=== PATIENT | female | born 1955 | race Caucasian/White ===

== ENCOUNTER 2017-03-24 18:29 | Inpatient (IN) | payer BC ==
[2017-03-24 19:06] LABS: Hematocrit 42.2 % (36.0-47.0); Mean Platelet Volume 7.9 fL (7.4-10.4); Red Blood Cell (RBC) Count 4.26 mill/uL (4.20-5.40); White Blood Cell (WBC) Count 19.3 thou/uL (4.8-10.8)
[2017-03-24 19:28] LABS: ALT (SGPT) 23 U/L (8-55); AST (SGOT) 27 U/L (5-34); Alkaline Phosphatase 76 U/L (40-150); Anion Gap 15 mmol/L (10-20); BUN (Urea Nitrogen) 22 mg/dL (9.8-20.1); Bilirubin, Total 0.4 mg/dL (0.2-1.2); CK (CPK) 81 U/L (29-168); Calc. Creatinine Clearance 0 mL/min (70-130); Calcium 9.1 mg/dL (7.8-10.44); Carbon Dioxide 20 mmol/L (23-31); Chloride 100 mmol/L (98-107); Estimated GFR-MDRD 52; Globulin 3.7 g/dL (2.4-3.5); Lipase 8 U/L (8-78); Protein, Total 7.6 g/dL (6.0-8.3)
[2017-03-24 19:31] LABS: Troponin I Less than 0.010 ng/mL (< 0.028)
[2017-03-24 19:35] LABS: Band 16 % (5-11); Neutrophil 65 % (42-75); Reactive Lymphocytes 2 % (0-10)
[2017-03-24] MEDS ORDERED: Acetaminophen 325 MG TAB ONE ×2 (19:40)
[2017-03-24 20:05] LABS: Lactic Acid - Sepsis 1.2 mmol/L (0.5-2.2)
[2017-03-24 20:40] LABS: Bilirubin Negative (Negative); Blood, Urine Moderate (Negative); Glucose, Urine (Dipstick) Negative (Negative); Ketone, Urine 15 mg/dL (Negative); Nitrite Positive (Negative); Protein, Urine (Dipstick) 100 mg/dL (Neg-Trace)
[2017-03-24 20:41] LABS: Bacteria/HPF 4+ HPF (None Seen); Hyaline Casts/LPF 0-3 HYALINE CAST LPF (0-3 Hyaline); Squamous Epithelial 0-3 HPF (0-3)
[2017-03-24] MEDS ORDERED: Levothyroxine Sodium 125 MCG TAB PO SCH (21:00)
--- NOTE | 2017-03-24 21:44 | RAD ---
PORTABLE CHEST 03/24/17 HISTORY: Tachycardia. Lung davis are clear. Heart and mediastinum are unremarkable. Vascular markings are normal. IMPRESSION: Unremarkable portable chest. POS: [facility]
[2017-03-24] MEDS ORDERED: Vancomycin HCl 750 MG in Sodium Chloride 0.9% 250 ML 250 ML IVPB SCH (21:45)
[2017-03-24] MEDS ORDERED: cefTRIAXone\\ROCEPHIN 2 GM in Sodium Chloride 0.9% 100 ML IVPB SCH (21:45)
[2017-03-25] MEDS ORDERED: Acetaminophen 325 MG TAB PO PRN (01:10)
[2017-03-25] MEDS ORDERED: Ondansetron ODT 4 MG TAB SL PRN (01:10)
[2017-03-25] MEDS ORDERED: Ondansetron HCl/PF 4 MG/2 ML Vial IVP PRN ×2 (01:10→03:10)
[2017-03-25] MEDS ORDERED: Sodium Chloride 0.9% 1,000 ML IV SCH ×2 (01:30)
[2017-03-25 01:31] VITALS: BMI 19.8
[2017-03-25] MEDS ORDERED: Acetaminophen 500 MG TAB PO PRN (03:10)
[2017-03-25] MEDS ORDERED: Ondansetron ODT 4 MG TAB PO PRN (03:10)
[2017-03-25] MEDS ORDERED: Vancomycin HCl 500 MG in Sodium Chloride 0.9% 100 ML IVPB SCH (03:30)
[2017-03-25] MEDS: Sodium Chloride 0.9% 1,000 ML IV SCH ×3 (03:54→20:14)
--- NOTE | 2017-03-25 04:01 | HP ---
DATE OF ADMISSION: 03/25/2017 PRIMARY CARE PROVIDER: Leana Reardon M.D. CHIEF COMPLAINT: Back pain and body aches. HISTORY OF PRESENT ILLNESS: This is a 61-year-old female who presents to [facility] complaining of generalized body aches, back pain, subjective fever and chills. The p atient states the symptoms began in the last 24 to 48 hours without relief. The patient denied any r ecent trauma, injury or exposure history. The patient denied any specific change to her bowel habits or hematuria. The patient admits to some flank pain mainly in the right flank distribution with sienna e radiation into the lower abdomen. The patient denied taking any specific home remedy for relief an d presented to the emergency room for evaluation. In the emergency room, the patient underwent gener al evaluation with urinalysis concerning for infectious process and sepsis criteria met with elevated pulse of 120, white blood cell count of 19,000 and hypotension. The patient received aggressive flu id resuscitation including intravenous normal saline as well as IV gentamicin, vancomycin, and Roceph in. The patient was also given levothyroxine 125 mcg x1 dose. The patient states she has been out o f her chronic Synthroid over the last 2 weeks. The patient states she was unable to fill the medicat ion, but was unclear on the reasoning. The patient was transferred to the medical floor for further evaluation. PAST MEDICAL HISTORY: 1. Chronic obstructive pulmonary disease. 2. Chronic tobacco abuse, ongoing. 3. Hypothyroidism, untreated. PAST SURGICAL HISTORY: 1. Status post cholecystectomy. 2. Status post thyroidectomy. 3. Status post hysterectomy. 4. Status post right middle finger surgery. CURRENT MEDICATIONS: 1. Estradiol 1 mg p.o. daily. 2. Levothyroxine 125 mcg p.o. daily half x2 weeks. ALLERGIES: CODEINE, PROCHLORPERAZINE, and TETANUS TOXOID. FAMILY HISTORY: No inheritable diseases per patient report. SOCIAL HISTORY: The patient resides in the [place], [place] area. The patient is employed with [employer]. Smokes up to one and a half packs of cigarettes daily. No alcohol or illicit drug us e. Functional of all activities of daily living. REVIEW OF SYSTEMS: The following complete review of systems was negative, unless otherwise mentioned in the HPI or below: Constitutional: Weight loss or gain, ability to conduct usual activities. Skin: Rash, itching. Eyes: Double vision, pain. ENT/Mouth: Nose bleeding, neck stiffness, pain, tenderness. Cardiovascular: Palpitations, dyspnea on exertion, orthopnea. Respiratory: Shortness of breath, wheezing, cough, hemoptysis, fever or night sweats. Gastrointestinal: Poor appetite, abdominal pain, heartburn, nausea, vomiting, constipation, or diarr hea. Genitourinary: Urgency, frequency, dysuria, nocturia. Musculoskeletal: Pain, swelling. Neurologic/Psychiatric: Anxiety, depression. Allergy/Immunologic: Skin rash, bleeding tendency. Otherwise, negative except as stated per HPI. PHYSICAL EXAMINATION: VITAL SIGNS: On admission, blood pressure 125/67, pulse 120, respiratory rate 18, temperature 99.9 d egrees Fahrenheit, O2 saturation is 95% on room air. GENERAL APPEARANCE: This is a 61-year-old female, alert, responsive, in mild distress. HEENT: Pupils are equal, round, and reactive to light and accommodation. Extraocular muscles are in tact. No scleral icterus, no conjunctival injection. Nares patent. OP is clear. NECK: Supple, no cervical adenopathy, no thyromegaly, no carotid bruits, no JVD appreciated. Cervic al spine with full active and passive range of motion. No meningeal signs appreciated. CHEST: Coarse breath sounds bilaterally with occasional expiratory wheeze bilaterally. CARDIOVASCULAR: S1, S2, without noted murmur. ABDOMEN: Flat, soft with mild tenderness in the right upper quadrant. Bowel sounds are positive in all four quadrants. No hepatosplenomegaly, no abdominal bruits, no rebound or guarding appreciated. Positive CVA tenderness of the right flank region. EXTREMITIES: Warm and dry with fair turgor. No clubbing, cyanosis or asymmetric edema appreciated. Pulses palpable distally at the dorsalis pedis, posterior tibial, and popliteal arteries bilaterally . Capillary refill less than 2 seconds. NEUROLOGIC: Cranial nerves II-XII are grossly intact. No focal or lateralizing signs appreciated. PERTINENT LABORATORY DATA AND X-RAY FINDINGS: Sodium 131, potassium 4.3, chloride 100, CO2 of 20, an ion gap 15, BUN 22, creatinine 1.07 with estimated GFR of 52, glucose 102, calcium 9.1, lactic acid l evel 1.2. LFTs within normal limits. Lipase 8, TSH 15.78, previously noted at 45.85 on 10/08/2016. CBC showed a white blood cell count 19.3, hemoglobin 14, hematocrit 42, platelet count 246 with 65% neutrophils, 16% bands. Urinalysis dated 03/24/2017 showed a specific gravity of 1.013, positive pro tein, positive ketones, moderate blood, positive nitrite, 11-20 wbc's and rbc's per high powered fiel d with 4+ bacteria. Influenza A and B antigen negative on 03/24/2017. Portable chest x-ray dated showed no acute cardiopulmonary process. EKG dated 03/24/2017 by my interpretation shows si nus tachycardia with heart rates in the 110s. Normal R-wave progression noted in the precordial lead s. Normal axis. No acute ST-T wave changes appreciated. ASSESSMENT AND PLAN: 1. Sepsis secondary to urinary tract infection. The patient will be admitted to the medical floor. We will continue intravenous normal saline at 125 mL per hour. Continue Rocephin 2 grams IV q.24 ho urs. Continue vancomycin 1 gram IV q.12 hours. Await final urine and blood culture results. [facility] general sepsis protocol. 2. Hypotension. We will continue intravenous fluids as outlined previously. Continue serial monito ring. 3. Hyponatremia. Continue intravenous normal saline as stated previously. Repeat sodium level in t he a.m. 4. Hypothyroidism. Untreated currently. Restart Synthroid 125 mcg p.o. daily. Check free T4 level in the a.m. 5. Metabolic acidosis. Secondarily to sepsis and urinary tract infection. Continue IV fluid hydrat ion and repeat CO2 level in the a.m. 6. Leukocytosis with bandemia, secondary to #1. Repeat CBC in the a.m. 7. Tobacco abuse. We will offer smoking cessation resources prior to discharge. 8. Prophylaxis. Sequential compression devices while in bed. Pepcid 20 mg p.o. b.i.d. 9. Code status is FULL. Surrogate medical decision maker is patient's spouse.
[2017-03-25 05:02] LABS: Lactic Acid - Sepsis 0.9 mmol/L (0.5-2.2)
[2017-03-25 05:08] LABS: Band 11 % (5-11); Hematocrit 32.7 % (36.0-47.0); Mean Platelet Volume 8.1 fL (7.4-10.4); Neutrophil 71 % (42-75); Red Blood Cell (RBC) Count 3.26 mill/uL (4.20-5.40); White Blood Cell (WBC) Count 19.1 thou/uL (4.8-10.8)
[2017-03-25 05:12] LABS: Anion Gap 13 mmol/L (10-20); BUN (Urea Nitrogen) 16 mg/dL (9.8-20.1); Calc. Creatinine Clearance 54 mL/min (70-130); Calcium 7.8 mg/dL (7.8-10.44); Carbon Dioxide 20 mmol/L (23-31); Chloride 111 mmol/L (98-107); Estimated GFR-MDRD 66
[2017-03-25] MEDS ORDERED: Levothyroxine Sodium 125 MCG TAB PO SCH (06:00)
[2017-03-25] MEDS ORDERED: Temazepam 15 MG CAP PO PRN (07:43)
[2017-03-25] MEDS ORDERED: Sodium Chloride 0.65% Nasal 44 ML BOT EA NARE PRN (07:43)
[2017-03-25] MEDS ORDERED: Diabetic Tussin 200 MG/10 ML UDCUP PO PRN (07:43)
[2017-03-25] MEDS ORDERED: Mag-Al 1200 mg/1200 mg/30 ML UDCUP PO PRN (07:43)
[2017-03-25] MEDS ORDERED: Milk Of Magnesia 30 ML UDCUP PO PRN (07:43)
[2017-03-25] MEDS ORDERED: Loratadine 10 MG TAB PO PRN (07:43)
[2017-03-25] MEDS ORDERED: Benzonatate 100 MG CAP PO PRN (07:43)
[2017-03-25] MEDS ORDERED: Senokot 8.6 MG TAB PO PRN (07:43)
[2017-03-25] MEDS ORDERED: Artificial Tears 18 DROP/0.9 ML EA EYE PRN (07:43)
[2017-03-25] MEDS ORDERED: Loperamide HCl 2 MG CAP PO PRN (07:43)
[2017-03-25] MEDS ORDERED: Chloraseptic Spray 180 ml Bottle PO PRN (07:43)
[2017-03-25] MEDS ORDERED: hydrALAZINE 20 MG/ML VIAL SLOW IVP PRN (07:43)
[2017-03-25] MEDS ORDERED: Eucerin (Mineral Oil/Petrolatum,White) 30 gm Jar TOP PRN (07:43)
[2017-03-25] MEDS: Famotidine 20 MG TAB PO SCH (08:40)
[2017-03-25] MEDS: Acetaminophen 500 MG TAB PO PRN ×3 (08:40→20:18)
[2017-03-25] MEDS: Estradiol 1 MG TAB PO SCH (08:40)
[2017-03-25] MEDS: Saccharomyces boulardii 250 MG CAP PO SCH (08:40)
[2017-03-25] MEDS ORDERED: Vancomycin HCl 1 GM in Sodium Chloride 0.9% 250 ML 250 ML IVPB SCH (09:00)
[2017-03-25] MEDS ORDERED: Vancomycin HCl 750 MG in Sodium Chloride 0.9% 250 ML 250 ML IVPB SCH (10:00)
--- NOTE | 2017-03-25 12:39 | PDOC.PN ---
- Subjective Encounter Start Date: 03/25/17 Encounter Start Time: 10:05 -: old records requested/rev Patient seen and examined. No new complaints. No overnight events - Objective Resuscitation Status: Resuscitation Status FULL:Full Resuscitation MAR Reviewed: Yes Vital Signs & Weight: Vital Signs (12 hours) Temp Pulse Resp BP Pulse Ox 03/25/17 08:00 99.1 F 89 16 105/67 96 03/25/17 04:10 98.1 F 74 18 94/54 L 96 I&O: 03/24/17 03/25/17 03/26/17 06:59 06:59 06:59 Intake Total 875 Balance 875 Result Diagrams: 03/25/17 03:58 03/25/17 03:59 Radiology Reviewed by me: Yes Phys Exam - Physical Examination Constitutional: NAD HEENT: PERRLA, moist MMs, sclera anicteric Neck: no JVD, supple Respiratory: no wheezing, no rales, no rhonchi Cardiovascular: RRR, no significant murmur, no rub Gastrointestinal: soft, non-tender, no distention, positive bowel sounds Musculoskeletal: no edema, pulses present Neurological: non-focal, normal sensation Psychiatric: normal affect, A&O x 3 Skin: no rash, normal turgor Dx/Plan (1) Sepsis Code(s): A41.9 - SEPSIS, UNSPECIFIED ORGANISM Status: Acute (2) UTI (urinary tract infection) Status: Acute (3) COPD (chronic obstructive pulmonary disease) Status: Chronic (4) Hypothyroidism Code(s): E03.9 - HYPOTHYROIDISM, UNSPECIFIED Status: Chronic (5) Macrocytic anemia Code(s): D53.9 - NUTRITIONAL ANEMIA, UNSPECIFIED Status: Chronic (6) Protein-calorie malnutrition, moderate Code(s): E44.0 - MODERATE PROTEIN-CALORIE MALNUTRITION Status: Chronic (7) Tobacco abuse Code(s): Z72.0 - TOBACCO USE Status: Chronic - Plan cont current plan of care, continue antibiotics * medication reviewed as below * symptomatic treatment * add levaquin * follow culture * home medication reconciled. Review of Systems - Review of Systems ENT: negative: Ear Pain, Ear Discharge, Nose Pain, Nose Discharge, Nose Congestion, Mouth Pain, Mouth Swelling, Throat Pain, Throat Swelling, Other Respiratory: negative: Cough, Dry, Shortness of Breath, Hemoptysis, SOB with Excertion, Pleuritic Pain, Sputum, Wheezing Cardiovascular: negative: Chest Pain, Palpitations, Orthopnea, Paroxysmal Noc. Dyspnea, Edema, Light Headedness, Other Gastrointestinal: negative: Nausea, Vomiting, Abdominal Pain, Diarrhea, Constipation, Melena, Hematochezia, Other Genitourinary: Dysuria. negative: Frequency, Incontinence, Hematuria, Retention , Other Musculoskeletal: negative: Neck Pain, Shoulder Pain, Arm Pain, Back Pain, Hand Pain, Leg Pain, Foot Pain, Other Skin: negative: Rash, Lesions, Fran, Bruising, Other - Medications/Allergies Allergies/Adverse Reactions: Allergies Allergy/AdvReac Type Severity Reaction Status Date / Time codeine Allergy Verified 03/25/17 01:22 prochlorperazine Allergy Verified 03/25/17 01:22 [From Compazine] Tetanus Vaccines and Toxoid Allergy Verified 03/25/17 01:22 Medications: Current Medications Acetaminophen (Tylenol) 500 mg PO Q6H PRN PRN Reason: Headache/Fever or Mild Pain Last Admin: 03/25/17 08:40 Dose: 500 mg Al Hydroxide/Mg Hydroxide (Maalox) 15 ml PO Q4H PRN PRN Reason: Heartburn or Indigestion Artificial Tears (Tears Naturale) 0 drop EA EYE PRN PRN PRN Reason: Dry Eyes Benzonatate (Tessalon) 100 mg PO Q4H PRN PRN Reason: Cough Estradiol (Estrace) 1 mg PO DAILY [facility] Last Admin: 03/25/17 08:40 Dose: 1 mg Famotidine (Pepcid) 20 mg PO DAILY [facility] Last Admin: 03/25/17 08:40 Dose: 20 mg Guaifenesin (Robitussin Sf) 200 mg PO Q4H PRN PRN Reason: Cough Hydralazine HCl (Apresoline) 10 mg SLOW IVP Q4H PRN PRN Reason: Systolic BP > 180 Ceftriaxone Sodium 2 gm/ (Sodium Chloride) 100 mls @ 200 mls/hr IVPB 2200 [facility] Sodium Chloride (Normal Saline 0.9%) 1,000 mls @ 125 mls/hr IV .Q8H [facility] Last Admin: 03/25/17 03:54 Dose: 1,000 mls Vancomycin HCl 750 mg/ Sodium (Chloride) 250 mls @ 250 mls/hr IVPB 2300 [facility] Levofloxacin 500 mg/ Device 100 mls @ 100 mls/hr IVPB 0800 [facility] Last Admin: 03/25/17 08:40 Dose: 100 mls Levothyroxine Sodium (Synthroid) 175 mcg PO 0600 [facility] Loperamide HCl (Imodium) 2 mg PO PRN PRN PRN Reason: Diarrhea/Loose Stools Loratadine (Claritin) 10 mg PO DAILYPRN PRN PRN Reason: Sinus Symptoms Magnesium Hydroxide (Milk Of Magnesium) 30 ml PO DAILYPRN PRN PRN Reason: Constipation Mineral Oil/White Petrolatum (Eucerin Cream) 0 gm TOP BIDPRN PRN PRN Reason: Dry Skin Ondansetron HCl (Zofran Odt) 4 mg PO Q6H PRN PRN Reason: Nausea/Vomiting Ondansetron HCl (Zofran) 4 mg IVP Q6H PRN PRN Reason: Nausea/Vomiting Phenol (Chloraseptic [place] 180 Ml Bot) 0 ml PO PRN PRN PRN Reason: Sore Throat Saccharomyces Boulardii (Florastor) 250 mg PO DAILY [facility] Last Admin: 03/25/17 08:40 Dose: 250 mg Senna (Senokot) 2 tab PO HSPRN PRN PRN Reason: Constipation Sodium Chloride ([employer] [place] Nasal [place] 0.65%) 0 ml EA NARE QIDPRN PRN PRN Reason: Nasal Congestion Sodium Chloride (Flush - Normal Saline) 10 ml IVF Q12HR [facility] Last Admin: 03/25/17 08:41 Dose: Not Given Sodium Chloride (Flush - Normal Saline) 10 ml IVF PRN PRN PRN Reason: Saline Flush Temazepam (Restoril) 15 mg PO HSPRN PRN PRN Reason: Insomnia
[2017-03-25] MEDS: Ibuprofen 800 MG TAB PO PRN (21:25)
[2017-03-25] MEDS: cefTRIAXone\\ROCEPHIN 2 GM in Sodium Chloride 0.9% 100 ML IVPB SCH (21:26)
[2017-03-25] MEDS: Vancomycin HCl 750 MG in Sodium Chloride 0.9% 250 ML 250 ML IVPB SCH (23:34)
[2017-03-26] MEDS: Levothyroxine Sodium 175 MCG TAB PO SCH (04:49)
[2017-03-26] MEDS: Acetaminophen 500 MG TAB PO PRN ×2 (04:54→16:44)
[2017-03-26] MEDS: Sodium Chloride 0.9% 1,000 ML IV SCH ×3 (04:54→19:19)
[2017-03-26 04:58] LABS: #Basophils 0.1 thou/uL (0.0-0.2); #Eosinphils 0.1 thou/uL (0.0-0.7); #Lymphocytes 1.1 thou/uL (1.20-3.40); #Monocytes 1.4 thou/uL (0.11-0.59); %Basophils 0.4 % (0.0-1.0); %Eosinophils 1.1 % (0.0-10.0); %Lymphocytes 8.9 % (21.0-51.0); %Monocytes 10.9 % (0.0-10.0); Hematocrit 31.5 % (36.0-47.0); Mean Platelet Volume 7.9 fL (7.4-10.4); Red Blood Cell (RBC) Count 3.14 mill/uL (4.20-5.40); White Blood Cell (WBC) Count 12.8 thou/uL (4.8-10.8)
[2017-03-26 05:25] LABS: ALT (SGPT) 31 U/L (8-55); AST (SGOT) 32 U/L (5-34); Alkaline Phosphatase 94 U/L (40-150); Anion Gap 11 mmol/L (10-20); BUN (Urea Nitrogen) 11 mg/dL (9.8-20.1); Bilirubin, Total 0.3 mg/dL (0.2-1.2); Calc. Creatinine Clearance 62 mL/min (70-130); Calcium 7.6 mg/dL (7.8-10.44); Carbon Dioxide 19 mmol/L (23-31); Chloride 112 mmol/L (98-107); Estimated GFR-MDRD 77; Globulin 2.6 g/dL (2.4-3.5); Protein, Total 5.4 g/dL (6.0-8.3)
[2017-03-26] MEDS: Ibuprofen 800 MG TAB PO PRN (05:36)
[2017-03-26] MEDS: Estradiol 1 MG TAB PO SCH (08:08)
[2017-03-26] MEDS: Famotidine 20 MG TAB PO SCH ×2 (08:08→19:19)
[2017-03-26] MEDS: Saccharomyces boulardii 250 MG CAP PO SCH (08:08)
--- NOTE | 2017-03-26 11:37 | PDOC.PN ---
- Subjective Encounter Start Date: 03/26/17 Encounter Start Time: 09:00 Patient seen and examined. No overnight events, c/o neck and back pain - Objective Resuscitation Status: Resuscitation Status FULL:Full Resuscitation MAR Reviewed: Yes Vital Signs & Weight: Vital Signs (12 hours) Temp Pulse Resp BP Pulse Ox 03/26/17 08:00 97.5 F L 74 16 107/65 95 03/26/17 03:32 97.7 F 77 18 117/72 95 03/25/17 23:38 98.0 F 76 18 93/53 L I&O: 03/25/17 03/26/17 03/27/17 06:59 06:59 06:59 Intake Total 875 3580 Balance 875 3580 Result Diagrams: 03/26/17 04:18 03/26/17 04:18 Phys Exam - Physical Examination Constitutional: NAD HEENT: PERRLA, moist MMs, sclera anicteric Neck: no JVD, supple Respiratory: no wheezing, no rales, no rhonchi Cardiovascular: RRR, no significant murmur, no rub Gastrointestinal: soft, non-tender, no distention, positive bowel sounds Musculoskeletal: no edema, pulses present Neurological: non-focal, normal sensation Lymphatic: no nodes Psychiatric: normal affect, A&O x 3 Skin: no rash, normal turgor Dx/Plan (1) Sepsis Code(s): A41.9 - SEPSIS, UNSPECIFIED ORGANISM Status: Acute (2) UTI (urinary tract infection) Status: Acute (3) COPD (chronic obstructive pulmonary disease) Status: Chronic (4) Hypothyroidism Code(s): E03.9 - HYPOTHYROIDISM, UNSPECIFIED Status: Chronic (5) Macrocytic anemia Code(s): D53.9 - NUTRITIONAL ANEMIA, UNSPECIFIED Status: Chronic (6) Protein-calorie malnutrition, moderate Code(s): E44.0 - MODERATE PROTEIN-CALORIE MALNUTRITION Status: Chronic (7) Tobacco abuse Code(s): Z72.0 - TOBACCO USE Status: Chronic - Plan cont current plan of care, continue antibiotics, respiratory therapy * continue iv antibiotics as ordered below. * add toradol for pain control * add folic acid, vitamin b12 * nutritional support * follow culture * medication reviewed as below * symptomatic treatment * continue ivf Review of Systems - Review of Systems Constitutional: negative: Fever, Chills, Sweats, Weakness, Malaise, Other Eyes: negative: Pain, Vision Change, Conjunctivae Inflammation, Eyelid Inflammation, Redness, Other ENT: negative: Ear Pain, Ear Discharge, Nose Pain, Nose Discharge, Nose Congestion, Mouth Pain, Mouth Swelling, Throat Pain, Throat Swelling, Other Respiratory: negative: Cough, Dry, Shortness of Breath, Hemoptysis, SOB with Excertion, Pleuritic Pain, Sputum, Wheezing Cardiovascular: negative: Chest Pain, Palpitations, Orthopnea, Paroxysmal Noc. Dyspnea, Edema, Light Headedness, Other Gastrointestinal: negative: Nausea, Vomiting, Abdominal Pain, Diarrhea, Constipation, Melena, Hematochezia, Other Genitourinary: negative: Dysuria, Frequency, Incontinence, Hematuria, Retention , Other Musculoskeletal: Neck Pain, Back Pain. negative: Shoulder Pain, Arm Pain, Hand Pain, Leg Pain, Foot Pain, Other - Medications/Allergies Allergies/Adverse Reactions: Allergies Allergy/AdvReac Type Severity Reaction Status Date / Time codeine Allergy Verified 03/25/17 01:22 prochlorperazine Allergy Verified 03/25/17 01:22 [From Compazine] Tetanus Vaccines and Toxoid Allergy Verified 03/25/17 01:22 Medications: Current Medications Acetaminophen (Tylenol) 500 mg PO Q6H PRN PRN Reason: Headache/Fever or Mild Pain Last Admin: 03/26/17 04:54 Dose: 500 mg Al Hydroxide/Mg Hydroxide (Maalox) 15 ml PO Q4H PRN PRN Reason: Heartburn or Indigestion Artificial Tears (Tears Naturale) 0 drop EA EYE PRN PRN PRN Reason: Dry Eyes Benzonatate (Tessalon) 100 mg PO Q4H PRN PRN Reason: Cough Cyanocobalamin (Vitamin B-12) 1,000 mcg PO DAILY [facility] Estradiol (Estrace) 1 mg PO DAILY [facility] Last Admin: 03/26/17 08:08 Dose: 1 mg Famotidine (Pepcid) 20 mg PO BID [facility] Folic Acid (Folvite) 1 mg PO DAILY [facility] Guaifenesin (Robitussin Sf) 200 mg PO Q4H PRN PRN Reason: Cough Hydralazine HCl (Apresoline) 10 mg SLOW IVP Q4H PRN PRN Reason: Systolic BP > 180 Ceftriaxone Sodium 2 gm/ (Sodium Chloride) 100 mls @ 200 mls/hr IVPB 2200 [facility] Last Admin: 03/25/17 21:26 Dose: 100 mls Sodium Chloride (Normal Saline 0.9%) 1,000 mls @ 125 mls/hr IV .Q8H [facility] Last Admin: 03/26/17 04:54 Dose: 1,000 mls Vancomycin HCl 750 mg/ Sodium (Chloride) 250 mls @ 250 mls/hr IVPB 2300 [facility] Last Admin: 03/25/17 23:34 Dose: 250 mls Levofloxacin 500 mg/ Device 100 mls @ 100 mls/hr IVPB 0800 [facility] Last Admin: 03/26/17 08:08 Dose: 100 mls Iron/Minerals/Multivitamins (Theragran M) 1 tab PO DAILY [facility] Levothyroxine Sodium (Synthroid) 175 mcg PO 0600 [facility] Last Admin: 03/26/17 04:49 Dose: 175 mcg Loperamide HCl (Imodium) 2 mg PO PRN PRN PRN Reason: Diarrhea/Loose Stools Loratadine (Claritin) 10 mg PO DAILYPRN PRN PRN Reason: Sinus Symptoms Magnesium Hydroxide (Milk Of Magnesium) 30 ml PO DAILYPRN PRN PRN Reason: Constipation Mineral Oil/White Petrolatum (Eucerin Cream) 0 gm TOP BIDPRN PRN PRN Reason: Dry Skin Ondansetron HCl (Zofran Odt) 4 mg PO Q6H PRN PRN Reason: Nausea/Vomiting Ondansetron HCl (Zofran) 4 mg IVP Q6H PRN PRN Reason: Nausea/Vomiting Phenol (Chloraseptic [place] 180 Ml Bot) 0 ml PO PRN PRN PRN Reason: Sore Throat Saccharomyces Boulardii (Florastor) 250 mg PO DAILY [facility] Last Admin: 03/26/17 08:08 Dose: 250 mg Senna (Senokot) 2 tab PO HSPRN PRN PRN Reason: Constipation Sodium Chloride ([place] Nasal [place] 0.65%) 0 ml EA NARE QIDPRN PRN PRN Reason: Nasal Congestion Sodium Chloride (Flush - Normal Saline) 10 ml IVF Q12HR [facility] Last Admin: 03/26/17 08:10 Dose: Not Given Sodium Chloride (Flush - Normal Saline) 10 ml IVF PRN PRN PRN Reason: Saline Flush Temazepam (Restoril) 15 mg PO HSPRN PRN PRN Reason: Insomnia
[2017-03-26] MEDS: Ketorolac Tromethamine 30 MG/ML VIAL IVP PRN ×2 (12:27→19:18)
[2017-03-26] MEDS: cefTRIAXone\\ROCEPHIN 2 GM in Sodium Chloride 0.9% 100 ML IVPB SCH (21:49)
[2017-03-26 22:20] LABS: Vancomycin, Trough 5.4 ug/mL
[2017-03-27] MEDS: Vancomycin HCl 750 MG in Sodium Chloride 0.9% 250 ML 250 ML IVPB SCH (00:04)
[2017-03-27] MEDS: Acetaminophen 500 MG TAB PO PRN (00:11)
[2017-03-27] MEDS: Sodium Chloride 0.9% 1,000 ML IV SCH ×2 (03:31→11:14)
[2017-03-27 05:30] LABS: #Eosinphils 0.2 thou/uL (0.0-0.7); #Lymphocytes 1.6 thou/uL (1.20-3.40); #Neutrophils 6.5 thou/uL (1.40-6.50); %Basophils 0.3 % (0.0-1.0); %Eosinophils 2.1 % (0.0-10.0); %Monocytes 10.3 % (0.0-10.0); Hematocrit 31.5 % (36.0-47.0); Mean Platelet Volume 7.9 fL (7.4-10.4); Red Blood Cell (RBC) Count 3.16 mill/uL (4.20-5.40); White Blood Cell (WBC) Count 9.3 thou/uL (4.8-10.8)
[2017-03-27] MEDS: Levothyroxine Sodium 175 MCG TAB PO SCH (05:42)
[2017-03-27 05:43] LABS: Anion Gap 8 mmol/L (10-20); BUN (Urea Nitrogen) 12 mg/dL (9.8-20.1); Calc. Creatinine Clearance 61 mL/min (70-130); Calcium 7.3 mg/dL (7.8-10.44); Carbon Dioxide 21 mmol/L (23-31); Chloride 112 mmol/L (98-107); Estimated GFR-MDRD 75
[2017-03-27] MEDS ORDERED: Potassium Chloride 20 MEQ TAB PO SCH (08:00)
[2017-03-27 08:23] LABS: Magnesium 2.1 mg/dL (1.6-2.6)
[2017-03-27 08:32] LABS: Phosphorus 1.5 mg/dL (2.3-4.7)
[2017-03-27] MEDS: Multivitamin W/ Minerals 1 TAB PO SCH (08:44)
[2017-03-27] MEDS: Folic Acid 1 MG TAB PO SCH (08:44)
[2017-03-27] MEDS: Famotidine 20 MG TAB PO SCH ×2 (08:44→20:19)
[2017-03-27] MEDS: Cyanocobalamin (Vitamin B-12) 1,000 MCG TAB PO SCH (08:44)
[2017-03-27] MEDS: Saccharomyces boulardii 250 MG CAP PO SCH (08:44)
[2017-03-27] MEDS: Estradiol 1 MG TAB PO SCH (08:45)
[2017-03-27] MEDS ORDERED: Magnesium Sulfate 4 GM in Sodium Chloride 0.9% 250 ML 250 ML IVPB SCH (09:00)
[2017-03-27] MEDS ORDERED: Vancomycin HCl 750 MG in Sodium Chloride 0.9% 250 ML 250 ML IVPB SCH (11:00)
--- NOTE | 2017-03-27 12:19 | PDOC.PN ---
- Subjective Encounter Start Date: 03/27/17 Encounter Start Time: 08:40 Patient seen and examined. No new complaints. No overnight events - Objective Resuscitation Status: Resuscitation Status FULL:Full Resuscitation MAR Reviewed: Yes Vital Signs & Weight: Vital Signs (12 hours) Temp Pulse Resp BP Pulse Ox 03/27/17 08:00 97.6 F 73 16 130/71 97 I&O: 03/26/17 03/27/17 03/28/17 06:59 06:59 06:59 Intake Total 3580 3480 Balance 3580 3480 Result Diagrams: 03/27/17 04:24 03/27/17 04:24 Phys Exam - Physical Examination Constitutional: NAD HEENT: PERRLA, moist MMs, sclera anicteric Neck: no JVD, supple Respiratory: no wheezing, no rales, no rhonchi Cardiovascular: RRR, no significant murmur, no rub Gastrointestinal: soft, non-tender, no distention, positive bowel sounds Musculoskeletal: no edema, pulses present Neurological: non-focal, normal sensation, moves all 4 limbs Psychiatric: normal affect, A&O x 3 Skin: no rash, normal turgor Dx/Plan (1) Sepsis Code(s): A41.9 - SEPSIS, UNSPECIFIED ORGANISM Status: Acute (2) UTI (urinary tract infection) Status: Acute (3) COPD (chronic obstructive pulmonary disease) Status: Chronic (4) Hypothyroidism Code(s): E03.9 - HYPOTHYROIDISM, UNSPECIFIED Status: Chronic (5) Macrocytic anemia Code(s): D53.9 - NUTRITIONAL ANEMIA, UNSPECIFIED Status: Chronic (6) Protein-calorie malnutrition, moderate Code(s): E44.0 - MODERATE PROTEIN-CALORIE MALNUTRITION Status: Chronic (7) Tobacco abuse Code(s): Z72.0 - TOBACCO USE Status: Chronic (8) Hypokalemia Code(s): E87.6 - HYPOKALEMIA Status: Acute (9) Hypomagnesemia Code(s): E83.42 - HYPOMAGNESEMIA Status: Acute - Plan cont current plan of care, continue antibiotics * continue iv antibiotics * medication reviewed as below * symptomatic treatment * replace potassium * replace magnesium. Review of Systems - Review of Systems ENT: negative: Ear Pain, Ear Discharge, Nose Pain, Nose Discharge, Nose Congestion, Mouth Pain, Mouth Swelling, Throat Pain, Throat Swelling, Other Respiratory: negative: Cough, Dry, Shortness of Breath, Hemoptysis, SOB with Excertion, Pleuritic Pain, Sputum, Wheezing Cardiovascular: negative: Chest Pain, Palpitations, Orthopnea, Paroxysmal Noc. Dyspnea, Edema, Light Headedness, Other Gastrointestinal: negative: Nausea, Vomiting, Abdominal Pain, Diarrhea, Constipation, Melena, Hematochezia, Other Genitourinary: negative: Dysuria, Frequency, Incontinence, Hematuria, Retention , Other Musculoskeletal: negative: Neck Pain, Shoulder Pain, Arm Pain, Back Pain, Hand Pain, Leg Pain, Foot Pain, Other Skin: negative: Rash, Lesions, Fran, Bruising, Other - Medications/Allergies Allergies/Adverse Reactions: Allergies Allergy/AdvReac Type Severity Reaction Status Date / Time codeine Allergy Verified 03/25/17 01:22 prochlorperazine Allergy Verified 03/25/17 01:22 [From Compazine] Tetanus Vaccines and Toxoid Allergy Verified 03/25/17 01:22 Medications: Current Medications Acetaminophen (Tylenol) 500 mg PO Q6H PRN PRN Reason: Headache/Fever or Mild Pain Last Admin: 03/27/17 00:11 Dose: 500 mg Al Hydroxide/Mg Hydroxide (Maalox) 15 ml PO Q4H PRN PRN Reason: Heartburn or Indigestion Artificial Tears (Tears Naturale) 0 drop EA EYE PRN PRN PRN Reason: Dry Eyes Benzonatate (Tessalon) 100 mg PO Q4H PRN PRN Reason: Cough Cyanocobalamin (Vitamin B-12) 1,000 mcg PO DAILY [facility]S [facility] Last Admin: 03/27/17 08:44 Dose: 1,000 mcg Estradiol (Estrace) 1 mg PO DAILY [facility] 234 [facility]S [facility] Last Admin: 03/27/17 08:45 Dose: 1 mg Famotidine (Pepcid) 20 mg PO BID [facility] 234 B[facility]S AT [facility] Last Admin: 03/27/17 08:44 Dose: 20 mg Folic Acid (Folvite) 1 mg PO DAILY [facility] 234 [facility]S AT [facility] Last Admin: 03/27/17 08:44 Dose: 1 mg Guaifenesin (Robitussin Sf) 200 mg PO Q4H PRN PRN Reason: Cough Hydralazine HCl (Apresoline) 10 mg SLOW IVP Q4H PRN PRN Reason: Systolic BP > 180 Ceftriaxone Sodium 2 gm/ (Sodium Chloride) 100 mls @ 200 mls/hr IVPB 2200 [facility] 234 [facility]S [facility] Last Admin: 03/26/17 21:49 Dose: 100 mls Sodium Chloride (Normal Saline 0.9%) 1,000 mls @ 125 mls/hr IV .Q8H [facility] 234 B[facility]S [facility] Last Admin: 03/27/17 11:14 Dose: Not Given Levofloxacin 500 mg/ Device 100 mls @ 100 mls/hr IVPB 0800 [facility] 234 B[facility]S [facility] Last Admin: 03/27/17 08:41 Dose: 100 mls Vancomycin HCl 750 mg/Miscellaneous Medication 1 each/ Sodium Chloride 250 mls @ 250 mls/hr IVPB 0200,1400 [facility] 234 BEDS AT [facility] Iron/Minerals/Multivitamins (Theragran M) 1 tab PO DAILY [facility] 234 [facility] Last Admin: 03/27/17 08:44 Dose: 1 tab Ketorolac Tromethamine (Toradol) 15 mg IVP Q6H PRN PRN Reason: Pain Stop: 03/31/17 11:36 Last Admin: 03/26/17 19:18 Dose: 15 mg Levothyroxine Sodium (Synthroid) 175 mcg PO 0600 [facility] 234 [facility]S [facility] Last Admin: 03/27/17 05:42 Dose: 175 mcg Loperamide HCl (Imodium) 2 mg PO PRN PRN PRN Reason: Diarrhea/Loose Stools Loratadine (Claritin) 10 mg PO DAILYPRN PRN PRN Reason: Sinus Symptoms Magnesium Hydroxide (Milk Of Magnesium) 30 ml PO DAILYPRN PRN PRN Reason: Constipation Mineral Oil/White Petrolatum (Eucerin Cream) 0 gm TOP BIDPRN PRN PRN Reason: Dry Skin Ondansetron HCl (Zofran Odt) 4 mg PO Q6H PRN PRN Reason: Nausea/Vomiting Ondansetron HCl (Zofran) 4 mg IVP Q6H PRN PRN Reason: Nausea/Vomiting Phenol (Chloraseptic [place] 180 Ml Bot) 0 ml PO PRN PRN PRN Reason: Sore Throat Saccharomyces Boulardii (Florastor) 250 mg PO DAILY [facility] 234 B[facility]S [facility] Last Admin: 03/27/17 08:44 Dose: 250 mg Senna (Senokot) 2 tab PO HSPRN PRN PRN Reason: Constipation Sodium Chloride ([place] Nasal [place] 0.65%) 0 ml EA NARE QIDPRN PRN PRN Reason: Nasal Congestion Sodium Chloride (Flush - Normal Saline) 10 ml IVF Q12HR [facility] Last Admin: 03/27/17 08:45 Dose: Not Given Sodium Chloride (Flush - Normal Saline) 10 ml IVF PRN PRN PRN Reason: Saline Flush Temazepam (Restoril) 15 mg PO HSPRN PRN PRN Reason: Insomnia
[2017-03-27] MEDS: Vancomycin HCl 750 MG, Admixture Fee 1 EACH in Sodium Chloride 0.9% 250 ML 250 ML IVPB SCH (15:06)
[2017-03-27] MEDS: Ibuprofen 600 MG TAB PO PRN (20:19)
[2017-03-27] MEDS: cefTRIAXone\\ROCEPHIN 2 GM in Sodium Chloride 0.9% 100 ML IVPB SCH (20:21)
[2017-03-28] MEDS: Sodium Chloride 0.9% 1,000 ML IV SCH ×2 (01:05→03:57)
[2017-03-28] MEDS: Vancomycin HCl 750 MG, Admixture Fee 1 EACH in Sodium Chloride 0.9% 250 ML 250 ML IVPB SCH (01:05)
[2017-03-28] MEDS: Acetaminophen 500 MG TAB PO PRN (04:48)
[2017-03-28] MEDS: Levothyroxine Sodium 175 MCG TAB PO SCH (06:18)
[2017-03-28 07:52] VITALS: BP 134/79; TEMP 97.8
[2017-03-28] MEDS: Ibuprofen 600 MG TAB PO PRN (08:26)
[2017-03-28] MEDS: Estradiol 1 MG TAB PO SCH (08:26)
[2017-03-28] MEDS: Famotidine 20 MG TAB PO SCH (08:27)
[2017-03-28] MEDS: Cyanocobalamin (Vitamin B-12) 1,000 MCG TAB PO SCH (08:27)
[2017-03-28] MEDS: Multivitamin W/ Minerals 1 TAB PO SCH (08:27)
[2017-03-28] MEDS: Folic Acid 1 MG TAB PO SCH (08:27)
[2017-03-28] MEDS: Saccharomyces boulardii 250 MG CAP PO SCH (08:27)
[2017-03-28 09:08] LABS: Anion Gap 7 mmol/L (10-20); BUN (Urea Nitrogen) 7 mg/dL (9.8-20.1); Calc. Creatinine Clearance 67 mL/min (70-130); Calcium 7.3 mg/dL (7.8-10.44); Carbon Dioxide 24 mmol/L (23-31); Chloride 112 mmol/L (98-107); Estimated GFR-MDRD 84
[2017-03-28 09:18] LABS: Phosphorus 1.8 mg/dL (2.3-4.7)
[2017-03-28] MEDS ORDERED: Potassium Phosphate 30 MMOL, Admixture Fee 1 EACH in Sodium Chloride 0.9% 500 ML IVPB SCH (09:30)
[2017-03-28] MEDS ORDERED: K-Phos Neutral 250 MG TAB PO SCH (10:30)
--- NOTE | 2017-03-28 12:29 | PDOC.PN ---
- Subjective Encounter Start Date: 03/28/17 Encounter Start Time: 10:30 Patient seen and examined. No new complaints. No overnight events - Objective Resuscitation Status: Resuscitation Status FULL:Full Resuscitation MAR Reviewed: Yes Vital Signs & Weight: Vital Signs (12 hours) Temp Pulse Resp BP Pulse Ox 03/28/17 07:51 97.8 F 66 18 134/79 95 03/28/17 05:29 97.5 F L 63 20 124/74 95 03/28/17 00:35 98.1 F 75 20 114/71 92 L I&O: 03/27/17 03/28/17 03/29/17 06:59 06:59 06:59 Intake Total 3480 4498 Balance 3480 4465 Result Diagrams: 03/27/17 04:24 03/28/17 08:24 Phys Exam - Physical Examination Constitutional: NAD HEENT: PERRLA, moist MMs, sclera anicteric Neck: no JVD, supple Respiratory: no wheezing, no rales, no rhonchi Cardiovascular: RRR, no significant murmur, no rub Gastrointestinal: soft, non-tender, no distention Musculoskeletal: no edema, pulses present Neurological: non-focal, normal sensation, moves all 4 limbs Psychiatric: normal affect, A&O x 3 Skin: no rash, normal turgor Dx/Plan (1) Sepsis Code(s): A41.9 - SEPSIS, UNSPECIFIED ORGANISM Status: Acute (2) UTI (urinary tract infection) Status: Acute (3) COPD (chronic obstructive pulmonary disease) Status: Chronic (4) Hypothyroidism Code(s): E03.9 - HYPOTHYROIDISM, UNSPECIFIED Status: Chronic (5) Macrocytic anemia Code(s): D53.9 - NUTRITIONAL ANEMIA, UNSPECIFIED Status: Chronic (6) Protein-calorie malnutrition, moderate Code(s): E44.0 - MODERATE PROTEIN-CALORIE MALNUTRITION Status: Chronic (7) Tobacco abuse Code(s): Z72.0 - TOBACCO USE Status: Chronic (8) Hypokalemia Code(s): E87.6 - HYPOKALEMIA Status: Acute (9) Hypomagnesemia Code(s): E83.42 - HYPOMAGNESEMIA Status: Acute - Plan cont current plan of care, continue antibiotics * KPhos one time * cipro * medication reviewed as below * symptomatic treatment * see discharge summery. Review of Systems - Review of Systems ENT: negative: Ear Pain, Ear Discharge, Nose Pain, Nose Discharge, Nose Congestion, Mouth Pain, Mouth Swelling, Throat Pain, Throat Swelling, Other Respiratory: negative: Cough, Dry, Shortness of Breath, Hemoptysis, SOB with Excertion, Pleuritic Pain, Sputum, Wheezing Cardiovascular: negative: Chest Pain, Palpitations, Orthopnea, Paroxysmal Noc. Dyspnea, Edema, Light Headedness, Other Gastrointestinal: negative: Nausea, Vomiting, Abdominal Pain, Diarrhea, Constipation, Melena, Hematochezia, Other Genitourinary: negative: Dysuria, Frequency, Incontinence, Hematuria, Retention , Other Musculoskeletal: negative: Neck Pain, Shoulder Pain, Arm Pain, Back Pain, Hand Pain, Leg Pain, Foot Pain, Other Skin: negative: Rash, Lesions, Fran, Bruising, Other - Medications/Allergies Allergies/Adverse Reactions: Allergies Allergy/AdvReac Type Severity Reaction Status Date / Time codeine Allergy Verified 03/25/17 01:22 prochlorperazine Allergy Verified 03/25/17 01:22 [From Compazine] Tetanus Vaccines and Toxoid Allergy Verified 03/25/17 01:22 Medications: Current Medications Acetaminophen (Tylenol) 500 mg PO Q6H PRN PRN Reason: Headache/Fever or Mild Pain Last Admin: 03/28/17 04:48 Dose: 500 mg Al Hydroxide/Mg Hydroxide (Maalox) 15 ml PO Q4H PRN PRN Reason: Heartburn or Indigestion Artificial Tears (Tears Naturale) 0 drop EA EYE PRN PRN PRN Reason: Dry Eyes Benzonatate (Tessalon) 100 mg PO Q4H PRN PRN Reason: Cough Cyanocobalamin (Vitamin B-12) 1,000 mcg PO DAILY [facility] Last Admin: 03/28/17 08:27 Dose: 1,000 mcg Estradiol (Estrace) 1 mg PO DAILY [facility] Last Admin: 03/28/17 08:26 Dose: 1 mg Famotidine (Pepcid) 20 mg PO BID [facility] Last Admin: 03/28/17 08:27 Dose: 20 mg Folic Acid (Folvite) 1 mg PO DAILY [facility] Last Admin: 03/28/17 08:27 Dose: 1 mg Guaifenesin (Robitussin Sf) 200 mg PO Q4H PRN PRN Reason: Cough Hydralazine HCl (Apresoline) 10 mg SLOW IVP Q4H PRN PRN Reason: Systolic BP > 180 Ceftriaxone Sodium 2 gm/ (Sodium Chloride) 100 mls @ 200 mls/hr IVPB 2200 [facility] Last Admin: 03/27/17 20:21 Dose: 100 mls Levofloxacin 500 mg/ Device 100 mls @ 100 mls/hr IVPB 0800 [facility] Last Admin: 03/28/17 08:25 Dose: 100 mls Vancomycin HCl 750 mg/Miscellaneous Medication 1 each/ Sodium Chloride 250 mls @ 250 mls/hr IVPB 0200,1400 [facility] Last Admin: 03/28/17 01:05 Dose: 250 mls Ibuprofen (Motrin) 600 mg PO Q6H PRN PRN Reason: Fever>101/(Mi/Mod/Sev) Pain Last Admin: 03/28/17 08:26 Dose: 600 mg Iron/Minerals/Multivitamins (Theragran M) 1 tab PO DAILY [facility] Last Admin: 03/28/17 08:27 Dose: 1 tab Ketorolac Tromethamine (Toradol) 15 mg IVP Q6H PRN PRN Reason: Pain Stop: 03/31/17 11:36 Last Admin: 03/26/17 19:18 Dose: 15 mg Levothyroxine Sodium (Synthroid) 175 mcg PO 0600 [facility] Last Admin: 03/28/17 06:18 Dose: 175 mcg Loperamide HCl (Imodium) 2 mg PO PRN PRN PRN Reason: Diarrhea/Loose Stools Loratadine (Claritin) 10 mg PO DAILYPRN PRN PRN Reason: Sinus Symptoms Magnesium Hydroxide (Milk Of Magnesium) 30 ml PO DAILYPRN PRN PRN Reason: Constipation Mineral Oil/White Petrolatum (Eucerin Cream) 0 gm TOP BIDPRN PRN PRN Reason: Dry Skin Ondansetron HCl (Zofran Odt) 4 mg PO Q6H PRN PRN Reason: Nausea/Vomiting Ondansetron HCl (Zofran) 4 mg IVP Q6H PRN PRN Reason: Nausea/Vomiting Phenol (Chloraseptic [place] 180 Ml Bot) 0 ml PO PRN PRN PRN Reason: Sore Throat Saccharomyces Boulardii (Florastor) 250 mg PO DAILY [facility] Last Admin: 03/28/17 08:27 Dose: 250 mg Senna (Senokot) 2 tab PO HSPRN PRN PRN Reason: Constipation Sodium Chloride ([place] Nasal [place] 0.65%) 0 ml EA NARE QIDPRN PRN PRN Reason: Nasal Congestion Sodium Chloride (Flush - Normal Saline) 10 ml IVF Q12HR DIDI Last Admin: 03/28/17 08:27 Dose: Not Given Sodium Chloride (Flush - Normal Saline) 10 ml IVF PRN PRN PRN Reason: Saline Flush Temazepam (Restoril) 15 mg PO HSPRN PRN PRN Reason: Insomnia
--- NOTE | 2017-03-28 14:00 | DIS ---
PRIMARY CARE PHYSICIAN: Leana Reardon M.D. DATE OF ADMISSION: 03/25/2017 DATE OF DISCHARGE: 03/28/2017 DISCHARGE DISPOSITION: Home. PRIMARY DISCHARGE DIAGNOSES: Urinary tract infection, sepsis, hypokalemia, hypomagnesemia. SECONDARY DISCHARGE DIAGNOSES: Tobacco abuse disorder, protein calorie malnutrition, moderate macroc ytic anemia, hypothyroidism, and chronic obstructive pulmonary disease. PRIMARY PROCEDURE/OPERATION: None. RADIOLOGICAL INVESTIGATION: Chest x-ray was normal. SIGNIFICANT LABS: WBC 9.83, hemoglobin 10.6, platelets was 71. Sodium 139, potassium 3.6, BUN 7, cr eatinine 0.71, calcium 7.3. Phosphorous 1.8, magnesium 2.1. LFTs normal. Urinalysis suggestive of UTI. Influenza screen negative. DISCHARGE MEDICATIONS: Ciprofloxacin 500 mg p.o. b.i.d. for 5 more days, vitamin B12 1000 mcg p.o. d aily, Pepcid 20 mg p.o. b.i.d., estradiol 1 mg p.o. daily, folic acid 1 mg p.o. daily, Synthroid 175 mcg p.o. daily, multivitamin 1 tablet p.o. daily, Florastor 250 mg p.o. daily. CONTRAINDICATIONS: None. CODE STATUS: FULL CODE. INPATIENT CONSULTANTS: None. ALLERGIES: CODEINE, PROCHLORPERAZINE, and TETANUS TOXOID. DISCHARGE PLAN: Post hospital, the patient will follow up with primary care physician in 1 week. HOSPITAL COURSE: A 61-year-old female who was admitted by Dr. Hackett. Please see his H&P for further details. The patient was admitted for nausea, vomiting, and generalized body aches. She was also fo und with urinary tract infection. She had leukocytosis. She was hypotensive. She was given fluid r esuscitation in the emergency room and after that she was admitted to medical floor. Her influenza s creen was negative. During this admission, she was found that her hypothyroidism was not well contro lled and that is why we increased the dose of Synthroid to 175 mcg p.o. daily. During this admission , we also found that she has macrocytosis and that is why we added folic acid, vitamin B12 and multiv itamin therapy. During this admission, the patient had abnormal electrolytes that was replaced while in hospital. Th e patient was treated with Rocephin and Levaquin therapy while in the hospital. On discharge, we david nged to ciprofloxacin for another 5 more days. The patient's cultures remained unremarkable. The martha rios's abnormal electrolytes improved. The patient is hemodynamically stable and tolerating p.o. we ll. The patient is seen and examined at bedside. Please see my progress note today for further details. Total time spent on discharge day 31 minutes.
== END 2017-03-28 12:55 | disposition home or self-care (01) | DRG 872 ==
LOC: ERS 18:29 → T4-A 03-25 00:47 → OBSVTOIN 03-25 00:47
PROVIDERS: ADMIT Internal Medicine; ATTEND Internal Medicine
DX: A41.9 Sepsis, unspecified organism (principal); E87.2 Acidosis; E44.0 Moderate protein-calorie malnutrition; E87.1 Hypo-osmolality and hyponatremia; N39.0 Urinary tract infection, site not specified; Z68.1 Body mass index [BMI] 19.9 or less, adult; J44.9 Chronic obstructive pulmonary disease, unspecified; F17.210 Nicotine dependence, cigarettes, uncomplicated; E03.9 Hypothyroidism, unspecified; E87.6 Hypokalemia; E83.42 Hypomagnesemia; D53.9 Nutritional anemia, unspecified; Z88.7 Allergy status to serum and vaccine; Z88.8 Allergy status to other drugs, medicaments and biological substances
CPT/HCPCS: 36415; 36416; 51701; 71010; 80048; 80053; 80202; 81003; 81015; 82553; 83605; 83690; 83735; 84100; 84439; 84443; 84484; 85007; 85025; 85027; 93005; 94760; 96361; 96365; 96367; 99406; A4216; A4353; J0696; J1580; J1885; J1956; J3370; J3475; J7050